=== PATIENT | female | born 2000 | race Hispanic/Latino ===

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

== ENCOUNTER 2020-03-19 13:49 | Observation (INO) | payer MEDICAID ==
[~2020-03-19] VITALS: Ht 154.9 cm; Wt 54.9 kg
[2020-03-19 14:29] LABS: APPEARANCE,URINE Cloudy (CLEAR); BILIRUBIN,URINE Negative (NEGATIVE); COLOR,URINE Yellow (YELLOW); GLUCOSE, URINE (UA) Negative (NEGATIVE); KETONES,URINE Negative (NEGATIVE); LEUKOCYTE ESTERASE ,URINE Trace (NEGATIVE); NITRATE,URINE Negative (NEGATIVE); OCCULT BLOOD,URINE Negative (NEGATIVE); PROTEIN,URINE Negative (NEGATIVE)
[2020-03-19] MEDS: LACTATED RINGERS 1000ML IV SCH ×2 (14:30→15:00)
[2020-03-19 14:56] LABS: BACTERIA,URINE Few /HPF (None Seen); MUCUS,URINE Few LPF (None Seen); RBC,URINE 0-1 /HPF (0-1); SQUAMOUS EPITHELIAL CELL,UR Few /HPF (0-2)
[2020-03-19] MEDS ORDERED: TERBUTALINE SULFATE VIAL 1MG/ML SQ ONE (14:58)
[2020-03-19] MEDS: TERBUTALINE SULFATE VIAL 1MG/ML SQ PRN ×2 (15:00→16:00)
== END 2020-03-19 16:25 | disposition home or self-care (01) ==
LOC: EDH 13:49 → LDH 14:05
PROVIDERS: ADMIT Obstetrics & Gynecology; ATTEND Obstetrics & Gynecology
DX: O26.893 Other specified pregnancy related conditions, third trimester (principal); R07.81 Pleurodynia; Z3A.30 30 weeks gestation of pregnancy
CPT/HCPCS: 81001; 96360; 96361; 96372; 99284; G0378 ×2; J3105; J7120

== ENCOUNTER 2020-09-22 06:26 | Day surgery (SDC) | payer MEDICAID ==
[2020-09-22] VITALS (16 sets, daily range): BP systolic 104–129; BP diastolic 57–79
[~2020-09-22] VITALS: Ht 157.5 cm; Wt 48.5 kg
[2020-09-22] MEDS ORDERED: CEFAZOLIN SODIUM 1 GM VIAL ONE (08:22)
[2020-09-22] MEDS ORDERED: LACTATED RINGERS 1000ML 1,000 ML IV ONE (08:22)
[2020-09-22] MEDS ORDERED: PANT20TA18 PO (08:40)
[2020-09-22] MEDS ORDERED: DICY20TA11 PO (08:40)
[2020-09-22] MEDS ORDERED: IOHEXOL-350 50ML VIAL IV ONE (09:28)
[2020-09-22] MEDS ORDERED: BUPIVACAINE/PF 0.5% 30ML VIAL ONE (10:18)
[2020-09-22] MEDS ORDERED: NEOSTIGMINE 5MG/5ML SYR IV ONE (10:45)
[2020-09-22] MEDS ORDERED: PROPOFOL 10 MG/ML 20ML VIAL IV ONE (10:45)
[2020-09-22] MEDS ORDERED: DEXAMETHASONE SOD PHOSPHATE 10MG/ML 1ML VIAL ONE ×2 (10:45→11:52)
[2020-09-22] MEDS ORDERED: MIDAZOLAM HCL 1 MG/ML 2ML VIAL ONE (10:45)
[2020-09-22] MEDS ORDERED: GLYCOPYRROLATE 1 MG/5 ML SYRINGE ONE (10:45)
[2020-09-22] MEDS ORDERED: SUCCINYLCHOLINE 200MG/10ML SYR ONE (10:45)
[2020-09-22] MEDS ORDERED: LIDOCAINE PF 2% 5ML ABBOJECT ONE (10:45)
[2020-09-22] MEDS ORDERED: ROCURONIUM 10MG/1ML SYR 10 MG/ML ML ONE (10:46)
[2020-09-22] MEDS ORDERED: ONDANSETRON HCL 4 MG/2 ML VIAL ONE (10:46)
[2020-09-22] MEDS ORDERED: FENTANYL CITRATE PF 50 MCG/1 ML 2ML VIAL ONE ×2 (10:46→11:32)
[2020-09-22] MEDS ORDERED: KETOROLAC TROMETHAMINE 30MG/ML ONE (13:22)
== END 2020-09-22 14:40 | disposition home or self-care (01) ==
LOC: DAH 06:26
PROVIDERS: ATTEND Surgery
DX: K80.10 Calculus of gallbladder with chronic cholecystitis without obstruction (principal); Z20.828 Contact with and (suspected) exposure to other viral communicable diseases
CPT/HCPCS: 47563; 74300; 87426; A4215; A4649; A4930; C1758; C1769 ×3; G0168; J0330; J0690; J1100 ×2; J1885; J2001; J2250; J2405; J2704; J2710; J3010 ×2; J3490 ×2; J7030; J7120 ×2; Q9967; 48400